=== PATIENT | male | born 1945 ===

== ENCOUNTER 2025-04-27 06:21 | Day surgery (SDC) | payer MEDICARE, OTHER, SELFPAY ==
[2025-04-27 07:05] LABS: Glucose - Point of Care 78 mg/dl (70-99)
== END 2025-04-27 08:35 | disposition home or self-care (01) ==
LOC: GI 06:21
PROVIDERS: ATTENDING PHYSICIAN Internal Medicine Gastroenterology
DX: R19.4 Change in bowel habit (principal); K57.30 Diverticulosis of large intestine without perforation or abscess without bleeding; D12.4 Benign neoplasm of descending colon
CPT/HCPCS: 45385; 88305; 82962

== ENCOUNTER → 2025-08-31 10:28 | Outpatient (REF) | payer MEDICARE, OTHER, SELFPAY | LOC: RAD 10:28 | PROVIDERS: ATTENDING PHYSICIAN Internal Medicine Cardiovascular Disease | DX: M85.9 Disorder of bone density and structure, unspecified (principal); M85.00 Fibrous dysplasia (monostotic), unspecified site; M81.0 Age-related osteoporosis without current pathological fracture | CPT/HCPCS: 77080 ==